=== PATIENT | male | born 1970 | race Caucasian/White ===

== ENCOUNTER 2016-12-13 19:02 | Inpatient (IN) | payer OTHER ==
[~2016-12-13] VITALS: Ht 177.8 cm; Wt 116.1 kg
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
--- NOTE | ~2016-12-13 | HP ---
PATIENT'S NAME: ESPERANZA PETE [facility] AGE: 46 Y [address] ROOM: [address] [address] LOCATION: [facility] [place] ADMIT DATE: 12/13/2016 History & Physical DISCHARGE DATE: FAMILY PHYSICIAN: PHYSICIAN, UNKNOWN ATTENDING PHYSICIAN: Tessie Lala DATE OF SERVICE: ADDENDUM: We will plan to medically optimize and observe for 72 hours prior to open reduction and internal fixation of the pelvis. Risks, benefits, and alternatives were all carefully discussed. TESSIE LALA MD DPM/reshma /[id number] D: [id number] T: [id number] HISTORY & PHYSICAL
[2016-12-13] MEDS ORDERED: PROVENTIL OR V6.7 GM INH ×2 (20:00)
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
--- NOTE | 2016-12-14 03:42 | NUR ---
Shift Summary: Patient is on bedrest. Good pain control with [place] at 0212 and Valium at 2303. Unable to lift his left leg to move it. Can flex ankle and wiggle toes. No numbness/tingling. VS are stable. Plan is for surgery on Thursday.
[2016-12-14] MEDS ORDERED: ALBUTEROL2.5 MG/31 INH (10:31)
--- NOTE | 2016-12-14 15:27 | NUR ---
Significant Event: PT ALERT AND ORIENTED. ON BEDREST DUE TO PELVIC FRACTURES. TAKES NORCO AND VALIUM FOR PAIN. WILL UPDATE YOU WITH TIMES. FAMILY HERE TO VISIT THIS AFTERNOON. PT HAS BEEN COMFORTABLE. SURGERY ON THURSDAY, THEN UP TO . Follow up:
--- NOTE | 2016-12-15 04:14 | NUR ---
Pt A&Ox3. VS stable on RA. Bedrest. Moves all extremities to command, CSM and neurochecks intact. Receives norco x2 and valium x2 for pain control. Repositions self. Plan is for possible surgery Thursday. Pleasant and cooperative.
--- NOTE | 2016-12-15 12:10 | NUR ---
1210 Introduced self/role to patient. Lives in [place], has his mom there and 3 children. Lot of friends. He was listed as self pay on my census but does have insurance and Admission was by to get that. Does not anticipate any needs at this time unless they do surgery and he would need a walker. Will continue to follow. Added my name to his marker board and explained he can have the nurse call me anytime and I can come up and visit with again if there are needs.
--- NOTE | 2016-12-15 19:18 | NUR ---
Significant Event: Alert & oriented. VSS, afebrile, room air. L) wrist IV SL. [place] and Valium given. Orders for mag citrate & up to commode. Bedrest. Pleasant & cooperative with cares. Follow up: Surgery tomorrow 0730.
--- NOTE | 2016-12-16 03:00 | NUR ---
Significant Event: A/O X 3. NPO AFTER MID-NOC FOR SURGERY TODAY. CHECKLIST STARTED, OPERATIVE PERMIT SIGNED. HAD NORCO X 2 AND VALIUM X 2, LAST AT 0219 FOR PAIN RATE OF 7 TO LEFT HIP-LEG. ICE BAG TO LEFT HIP. BILATERAL FOOT PUMPS ON. MOVES ALL EXTREMITIES TO COMMAND. CSM AND NEURO CHECKS INTACT. IV SALINE LOCK INTACT. Follow up:
[2016-12-16 12:05] LABS: BICARBONATE 26.5 mmol/L (18.0-23.0); PCO2 40 mmHg (35-45); PO2 59 mmHg (80-90)
[2016-12-16 12:08] LABS: POTASSIUM 4.1 mEq/L (3.7-5.1); SODIUM 138 mEq/L (135-145)
--- NOTE | 2016-12-16 16:44 | NUR ---
Significant Event:Pt arrived from PACU at 1440. CT scan of pelvis completed before tx to NTU. VSS, first hourly VS due at 1830. Rates pain 5-7/10. [place] 2 tabs to be given at 1730. Dsg to L hip is CDI, CSM is adequate to lower extremities. Pt has known hx of L sciatic palsy, takes Gabapentin for this. [place] intact with lakshmi colored urnine. Lungs clear/diminshed, pt hx of asthma, O2 at 2L/NC. Uses IS with encouragement. Bedrest tonight per orders, NV checks every 2 hours. Follow up:PT to see in a.m. pain control.
[2016-12-17 04:38] LABS: HEMATOCRIT 34.2 % (37.0-53.0); HEMOGLOBIN 11.5 g/dL (12.0-17.0)
--- NOTE | 2016-12-17 04:54 | NUR ---
Significant Event: Patient is alert and oriented x 3. Denies numbness or tingling this shift. C/O pain to left hip controlled with 2 [place] PRN-last at 0237. Moves spontaneously and follows commands. Strong and equal strength. 2+ pulses. PERRL. VSS. On 2L O2 via NC. Lungs clear. Bowel sounds active. No BM this shift. Rosas in place draining yellow urine without complications-to be removed this AM. 2 IVs to left forearm SL. Dressing to left hip is C/D/I. Ice to site. Assisted with repositioning. Uses call light appropriately. Pleasant and cooperative with cares. NWB LLE. Regular diet. Neurovascular checks Q2H x 24H. Bilateral foot pump boots on. Follow up: pain management, PT to see/eval, remove rosas this AM
--- NOTE | 2016-12-17 09:56 | NUR ---
Social visit with Garrett, let him know that I was the in home caregiver that would be following him while he was on NTU. He tells me it was his original plan to return home with family support when he was dismissed from us, but now he thinks he might need a little bit more help with therapies before he can get here. I let him know that I would talk with nursing and doctors to see if TRAN might be warrented or if he would be better off going home with some [facility] follow[facility]. He is fine with this. States that he might need a FWW when he goes home so I left a script on the chart for MD to sign so he can obtain that when he is dismissed. Also let him know that I would visit with therapies to see if there was any additional DME that he might need upon discharge as well. Will see what MD, therapies and nursing recommends for his discharge destination and then proceed from that point. Will continue to follow and assist.
--- NOTE | 2016-12-17 13:34 | NUR ---
Significant Event: Patient A/O X3. Denies N/T. Follows commands. Equal strength throughout. Able to wiggle toes bialterally. Warm to touch. Good cap refill. VSS. 2+ pedal pulses. Slight edema to left leg. Room air with sats in the mid 90s. LS clear throughout. Voiding per urinal. BS active X4. Regular diet. Passing gas. Dressing to left upper leg. C/D/I. L) Anterior forearm PIVs X2. SLL. FLush with no complications. NWB to the left lower extremity. 1 assist with gaitbelt and walker. PT to trial crutches this afternoon. [place] X2 tabs given Q4H for pain. Pleasant and cooperative with cares. Follow up:
--- NOTE | 2016-12-18 05:51 | NUR ---
Significant Event: Patient is alert and oriented x3. VSS. Denies ORELLANA. Denies N/T. Pain has been controlled with PO medications. PERRLA. Follows commands. Strong equal strength throughout. Tachycardic this shift. Room air-clear. CPAP at [facility] if needed. Regular diet- hypoactive-round/firm- is passing some gas. Takes pills whole with water. Up with 1a gb and walker. NWBT left extremity. L PIV's in Left FA-sl'd. Dressing to left hip-reinforced. Wiggles toes, plantar/dorsal flex. Cap refill around toes are less than 3 sec. Follow up: Pain control. Possible discharge to home today 12/18.
--- NOTE | 2016-12-18 12:21 | NUR ---
Social visit with Garrett today. Talked about discharge and how well he was doing so we were looking at discharging to home with family support. He is fine with this. States his family is making a ramp for him to get into the house easier. The ramp will be completed this evening. I informed him that I had left a script on the chart for both FWW and crutches upon discharge. Went over where to get those items at yesterday with him and he voiced no concerns about obtaining them when he was dismissed. He tells me that his family will come and pick him up when he is dismissed. No other questions, needs or concerns. Plan for discharge to home possibly later today or tomorrow pending on what doctors feel is best. I also talked with SURAJ Riggs and let her know that I left those scripts on the chart for him so she didn't need to. Also asked her to give him [employer] business card to Garrett when she went to see him today so he had that as a resource as well. Will continue to follow and assist. Plan home.
--- NOTE | 2016-12-18 16:04 | NUR ---
Significant Event:PT IS AAOX3. NO C/O NUMBNESS OR TINGLING. UP 1A WALKER GB. CLEAR LUNG SOUNDS ON RA. HYPO TO ACTIVE BS. PASSING FLATUS. NO BM. REFUSED MOM. CAN BE TACHY IN LOW 100'S. DRSG TO LEFT HIP CHANGED DURING SHOWER. IV X2 SL'D. NORCO FOR PAIN LAST AT 1123. NWB TO LEFT LEG. MAY DISMISS TODAY. AWAITING MD. DAUGHTER OF PATIENT DID CALL AND SAY HIS RAMP TO GET INTO HIS HOUSE WILL NOT BE DONE TIL TOMORROW. Follow up:MONITOR PAIN
--- NOTE | 2016-12-19 04:48 | NUR ---
Significant Event: PATIENT IS ALERT AND ORIENTED X3. VSS. FOLLOWS COMMANDS. DENIES ORELLANA. DENIES N/T. PERRLA. LEFT LEG SLIGHTLY WEAKER THAN RIGHT-OTHERWISE EQUAL STRENGTH THROUGHOUT. TACHYCARDIC AT TIMES. EDEMA TO LLE. ROOM AIR. REGULAR DIET. ABDOMENT IS ROUND AND SLIGHTLY FIRM-DENIES BEING [id number] THAT IT IS NORMAL FOR HIM TO A FEW DAYS WITHOUT. 1A WALKER/GB- NWBT LLE. TWO PIV'S IN LEFT FA-FLUSH WELL-SL'D. DRESSING TO LEFT HIP-C/D/I- CHANGED 12/18. PO MEDICATIONS FOR PAIN CONTROL. Follow up: PAIN CONTROL. DISCHARGE TO HOME TODAY 12/19.
[2016-12-19] MEDS ORDERED: LOVENOX 4040 MG/0.4 SUB-Q (08:47)
[2016-12-19] MEDS ORDERED: NORCO 5-325 TA1 EACH PO (08:50)
[2016-12-19] MEDS ORDERED: NEURONTIN400 MG PO (08:51)
== END 2016-12-19 14:00 | disposition disaster alternative care site (69) | DRG 956 ==
LOC: GMSU 19:02 → GNTU 19:02
PROVIDERS: Anesthesiology; ADMIT Orthopaedic Surgery
DX: S32.422A Displaced fracture of posterior wall of left acetabulum, initial encounter for closed fracture (principal); S74.02XA Injury of sciatic nerve at hip and thigh level, left leg, initial encounter; S73.005A Unspecified dislocation of left hip, initial encounter; V23.4XXA Motorcycle driver injured in collision with car, pick-up truck or van in traffic accident, initial encounter; S32.442A Displaced fracture of posterior column [ilioischial] of left acetabulum, initial encounter for closed fracture; M24.052 Loose body in left hip; J45.909 Unspecified asthma, uncomplicated; E66.9 Obesity, unspecified; Z68.36 Body mass index [BMI] 36.0-36.9, adult; K59.00 Constipation, unspecified
CPT/HCPCS: C1713; J0131; J0690; J1170; J1650; J2001; J3010; J7030; J7120; P9045

== ENCOUNTER → 2017-01-06 | Outpatient (CLI) | payer OTHER ==
[~2017-01-06] MED LIST: ALBUTEROL2.5 MG/31 INH; LOVENOX 4040 MG/0.4 SUB-Q; NEURONTIN400 MG PO; NORCO 5-325 TA1 EACH PO; PROVENTIL OR V6.7 GM INH
== END | disposition disaster alternative care site (69) ==
LOC: GRAD 11:15
DX: S32.402D Unspecified fracture of left acetabulum, subsequent encounter for fracture with routine healing (principal); X58.XXXD Exposure to other specified factors, subsequent encounter

== ENCOUNTER → 2017-02-17 | Outpatient (CLI) | payer OTHER | END | disposition disaster alternative care site (69) | LOC: GRAD 12:30 | DX: Z51.89 Encounter for other specified aftercare (principal); Z96.642 Presence of left artificial hip joint ==

== ENCOUNTER → 2017-03-16 | Outpatient (CLI) | payer OTHER | END | disposition disaster alternative care site (69) | LOC: GRAD 13:56 | DX: M84.48XD Pathological fracture, other site, subsequent encounter for fracture with routine healing (principal) ==

== ENCOUNTER → 2017-04-13 | Outpatient (CLI) | payer OTHER | END | disposition disaster alternative care site (69) | LOC: GRAD 12:27 | DX: S32.402D Unspecified fracture of left acetabulum, subsequent encounter for fracture with routine healing (principal); S72.002D Fracture of unspecified part of neck of left femur, subsequent encounter for closed fracture with routine healing; Z98.890 Other specified postprocedural states; X58.XXXD Exposure to other specified factors, subsequent encounter ==

== ENCOUNTER → 2017-06-16 | Outpatient (CLI) | payer OTHER | END | disposition disaster alternative care site (69) | LOC: GRAD 05-25 09:00 | DX: Z47.89 Encounter for other orthopedic aftercare (principal); S32.402D Unspecified fracture of left acetabulum, subsequent encounter for fracture with routine healing; X58.XXXD Exposure to other specified factors, subsequent encounter ==